=== PATIENT | male | born 1995 | race Caucasian/White ===

== ENCOUNTER 2019-09-25 17:08 | Emergency (ER) | payer OTHER ==
[~2019-09-25] VITALS: Ht 177.8 cm; Wt 90.7 kg
--- NOTE | 2019-09-25 18:27 | NUR ---
PT BIB SELF C/O L HAND PAIN AND SWELLING FROM IV DRUG USE, PT IS AAOX4, NOT IN RESPIRATORY DISTRESS, HOOKED TO MONITOR, KEPT RESTED AND COMFORTABLE, WILL CONTINUE TO MONITOR.
--- NOTE | 2019-09-25 18:47 | NUR ---
PAGED Isiah WHITTAKER
--- NOTE | 2019-09-25 18:48 | NUR ---
SEEN AND EXAMINED BY .
--- NOTE | 2019-09-25 18:58 | NUR ---
IV LINE ESTABLIHSED, BLOOD DRAWN AND SENT TO LAB.
[2019-09-25] MEDS ORDERED: VANCOMYCIN 1 GM in IV D5W 250 ML IV ONE (19:00)
[2019-09-25] MEDS ORDERED: LIDOCAINE 1%-EPI 1:100,000 50 ML VIAL IJ ONE (19:00)
[2019-09-25] MEDS ORDERED: PIPERACILLIN /TAZOBACTAM 3.375 G in IV D5W 50 ML IV ONE (19:00)
[2019-09-25 19:01] LABS: BASOPHILS # (AUTO) 0.1 /CMM (0.0-0.2); BASOPHILS % (AUTO) 0.9 % (0.0-2.0); EOSINOPHILS % (AUTO) 3.7 % (0.0-6.0); HEMATOCRIT 46 % (39-51); HEMOGLOBIN 15.3 g/dL (13.5-17.5); LYMPHOCYTES # (AUTO) 2.7 /CMM (0.8-4.8); LYMPHOCYTES % (AUTO) 26.6 % (20.0-44.0); MEAN CORPUSCULAR HGB CONC 33 g/dl (31.0-36.0); MEAN CORPUSCULAR VOLUME 87 fL (80-96); MONOCYTES # (AUTO) 0.7 /CMM (0.1-1.30); MONOCYTES % (AUTO) 7.1 % (2.0-12.0); NEUTROPHILS # (AUTO) 6.3 /CMM (1.8-8.9); NEUTROPHILS % (AUTO) 61.7 % (43.0-81.0); PLATELET COUNT (AUTO) 353 /CMM (150-450); RED BLOOD CELL COUNT(AUTO) 5.27 MIL/uL (4.5-6.0); WHITE BLOOD COUNT (AUTO) 10.1 K/uL (4.3-11.0)
[2019-09-25] MEDS ORDERED: VANCOMYCIN 1 GM VIAL ONE (19:02)
[2019-09-25] MEDS ORDERED: PIPERACILLIN /TAZOBACTAM 3.375 G VIAL IV ONE (19:02)
[2019-09-25] MEDS ORDERED: LIDOCAINE 1%-EPI 1:100,000 20 ML VIAL ONE (19:03)
[2019-09-25 19:12] LABS: CREATININE 1.2 mg/dL (0.6-1.3); POTASSIUM 4.3 mmol/L (3.5-5.1)
[2019-09-25 19:13] LABS: CALCIUM, SERUM 9.2 mg/dL (8.5-10.1)
[2019-09-25] MEDS ORDERED: GABA-534 PO (19:18)
[2019-09-25 19:19] LABS: ALBUMIN 3.5 g/dL (3.4-5.0); BILIRUBIN,DIRECT 0.1 mg/dL (0.0-0.2); BILIRUBIN,TOTAL 0.2 mg/dL (0.2-1.0); TOTAL PROTEIN, SERUM 7.6 g/dL (6.4-8.2)
--- NOTE | 2019-09-25 19:35 | NUR ---
DR. HEARD AT BEDSIDE FOR I&D
--- NOTE | 2019-09-25 19:43 | NUR ---
PAGED DR MOREL
--- NOTE | 2019-09-25 19:49 | NUR ---
DR. HEARD ON THE PHONE WITH DR. MOREL
--- NOTE | 2019-09-25 19:56 | NUR ---
WOUND CULTURES COLLECTED AND SENT TO LAB
--- NOTE | 2019-09-25 20:56 | NUR ---
IV removed. Catheter intact and site benign. Pressure and 4x4 applied to site. No bleeding noted. Patient discharged to home in stable condition. Written and verbal after care instructions given. Patient verbalizes understanding of instruction.
[2019-09-25 21:32] VITALS: BP 121/70
== END 2019-09-25 20:55 | disposition home or self-care (01) ==
LOC: ER 17:14
DX: L02.512 Cutaneous abscess of left hand (principal); L03.114 Cellulitis of left upper limb; F17.200 Nicotine dependence, unspecified, uncomplicated; Z86.19 Personal history of other infectious and parasitic diseases
CPT/HCPCS: 10060; 36415; 80048; 80076; 82550; 85025; 87040 ×2; 87070; 96365; 96368; 99284; A6403; J2543 ×2; J3370; J3490 ×2; J7060